=== PATIENT | female | born 1970 | race Caucasian/White ===

== ENCOUNTER → 2017-05-18 | Outpatient (REF) | payer OTHER ==
[2017-05-18 11:37] LABS: FREE T4 0.9 NG/DL (0.76-1.46)
== END ==
LOC: M LABDRAW1 09:49
PROVIDERS: ATTEND Nurse Practitioner Family
DX: E03.9 Hypothyroidism, unspecified (principal)

== ENCOUNTER → 2017-07-14 | Outpatient (CLI) | payer OTHER ==
[2017-07-14 12:32] LABS: FREE T4 1.06 NG/DL (0.76-1.46)
== END ==
LOC: M LAB 11:45
PROVIDERS: ATTEND Nurse Practitioner Family
DX: E03.9 Hypothyroidism, unspecified (principal)

== ENCOUNTER → 2018-07-01 | Outpatient (CLI) | payer MEDICAID ==
[2018-07-01 17:23] LABS: THYROID PEROXIDASE ANTIBODY 337.9 U/ML (<60.0)
[2018-07-01 17:24] LABS: FREE T4 1.11 NG/DL (0.76-1.46); THYROID STIMULATING HORMONE 0.065 uIU/ML (0.358-3.740)
== END ==
LOC: M LAB 16:19
DX: E06.3 Autoimmune thyroiditis (principal)
CPT/HCPCS: 84443

== ENCOUNTER → 2018-07-01 | Outpatient (CLI) | payer MEDICAID ==
[2018-07-01 16:50] LABS: BASO % 0.4 % (0.0-1.0); EOS # 0.1 10^3/uL (0.0-0.50); EOS % 1.5 % (0.0-3.0); HEMOGLOBIN 12.6 g/dl (12.0-15.5); IMMATURE GRANULOCYTE % 0.4 % (0-3.0); LYMPH # 1.8 10^3/uL (1.5-4.5); LYMPH % 34.1 % (24.0-44.0); MEAN CORPUSCULAR HEMOGLOBIN 31.3 pg (27.0-33.0); MEAN CORPUSCULAR HGB CONC 33.2 g/dl (32.0-36.5); MEAN CORPUSCULAR VOLUME 94.5 fl (80.0-96.0); MONO # 0.7 10^3/uL (0.0-0.8); MONO % 12.6 % (0.0-5.0); NEUTROPHILS # 2.7 10^3/uL (1.8-7.7); PLATELET COUNT, AUTOMATED 259 10^3/uL (150-450); RED BLOOD COUNT 4.02 10^6/uL (4.00-5.40); RED CELL DISTRIBUTION WIDTH 12.8 % (11.5-14.5); WHITE BLOOD COUNT 5.3 10^3/uL (4.0-10.0)
[2018-07-01 17:07] LABS: ESTIMATED AVERAGE GLUCOSE 105 MG/DL (60-110); HEMOGLOBIN A1c 5.3 %
[2018-07-01 17:17] LABS: ALKALINE PHOSPHATASE 49 U/L (45-117); ALT/SGPT 25 U/L (12-78); ANION GAP 6 MEQ/L (8-16); AST/SGOT 14 U/L (7-37); BLOOD UREA NITROGEN 11 MG/DL (7-18); CALCIUM LEVEL 8.6 MG/DL (8.5-10.1); CARBON DIOXIDE LEVEL 28 MEQ/L (21-32); CHLORIDE LEVEL 109 MEQ/L (98-107); CREATININE FOR GFR 0.79 MG/DL (0.55-1.30); GLOMERULAR FILTRATION RATE > 60.0 (>51); GLUCOSE, FASTING 86 MG/DL (70-100); POTASSIUM SERUM 3.9 MEQ/L (3.5-5.1); SODIUM LEVEL 143 MEQ/L (136-145)
[2018-07-01 17:18] LABS: ALBUMIN 3.5 GM/DL (3.2-5.2); ALBUMIN/GLOBULIN RATIO 1.09 (1.00-1.93); BILIRUBIN,TOTAL 0.4 MG/DL (0.2-1.0); CHOLESTEROL LEVEL 119 MG/DL (<200); HDL CHOLESTEROL 61 MG/DL (>40); LDL CHOLESTEROL 44.8 MG/DL (<100); NON-HDL-C 58 MG/DL; TOTAL PROTEIN 6.7 GM/DL (6.4-8.2); TRIGLYCERIDES LEVEL 66 MG/DL (<150)
[2018-07-01 17:23] LABS: TOTAL 25(OH) VITAMIN D 48.9 NG/ML (30.0-100.0)
== END ==
LOC: M LAB 16:09
DX: E55.9 Vitamin D deficiency, unspecified (principal); I10 Essential (primary) hypertension; R73.03 Prediabetes; E78.5 Hyperlipidemia, unspecified
CPT/HCPCS: 80053

== ENCOUNTER → 2018-11-03 | Outpatient (CLI) | payer OTHER ==
[2018-11-03 13:48] LABS: FREE T4 1.09 NG/DL (0.76-1.46); THYROID STIMULATING HORMONE 0.592 uIU/ML (0.358-3.740)
== END ==
LOC: M LAB 12:50
PROVIDERS: ATTEND Nurse Practitioner Family
DX: E06.3 Autoimmune thyroiditis (principal)

== ENCOUNTER → 2020-11-03 | Outpatient (CLI) | payer SELFPAY | LOC: M LABSMTC 10:36 | PROVIDERS: ATTEND Pediatrics | DX: Z20.828 Contact with and (suspected) exposure to other viral communicable diseases (principal) ==

== ENCOUNTER → 2021-05-08 | Outpatient (CLI) | payer BC ==
--- NOTE | 2021-05-08 13:20 | REP ---
INDICATION: PAIN IN LEFT FINGER(S) COMPARISON: None. TECHNIQUE: AP, lateral, bilateral oblique views left 5th digit. FINDINGS: There is a nondisplaced spiral fracture of the 5th metacarpal bone with overlying soft tissue swelling. Remainder of the examination is age-appropriate. IMPRESSION: Nondisplaced spiral fracture of the 5th metacarpal bone. <Electronically signed by Leon Lynn > 05/08/21 [id number]
== END ==
LOC: M RAD 12:44
PROVIDERS: ATTEND Physician Assistant
DX: S62.307A Unspecified fracture of fifth metacarpal bone, left hand, initial encounter for closed fracture (principal); Y92.9 Unspecified place or not applicable; Y93.9 Activity, unspecified; Y99.9 Unspecified external cause status; M79.645 Pain in left finger(s)

== ENCOUNTER 2021-08-06 13:11 | Emergency (ER) | payer OTHER, BC ==
[~2021-08-06] VITALS: Ht 149.9 cm; Wt 78.7 kg
[2021-08-06] MEDS ORDERED: AMLO1TAB24 (13:30)
[2021-08-06] MEDS ORDERED: LEVO75TA4 (13:30)
[2021-08-06] MEDS ORDERED: ATOR1TAB19 (13:30)
--- NOTE | 2021-08-06 13:47 | REP ---
INDICATION: pain and decreased ROM after a fall. COMPARISON: None. TECHNIQUE: Three views of the left shoulder were obtained. FINDINGS: There is no evidence of fracture or dislocation. The glenohumeral joint is normal. There is mild arthritis of the acromioclavicular joint. The periarticular soft tissues including the visualized left lung are unremarkable. IMPRESSION: 1. No evidence of fracture or dislocation. 2. Mild arthritis of the acromioclavicular joint. <Electronically signed by Cj Durand > 08/06/21 [id number]
[2021-08-06] MEDS ORDERED: XARE20TA PO (15:13)
[2021-08-06] MEDS ORDERED: NORCO, ANEXSIA 5/325MG TABLET (HYDROcodone/ACETAMINOPHEN) PO ONE (15:15)
--- NOTE | 2021-08-06 15:39 | REP ---
INDICATION: pain over 5th metacarpal to Ulna, recent fx, ORALIA. COMPARISON: None. TECHNIQUE: Four views of left hand were obtained. FINDINGS: There is no evidence of acute fracture or dislocation. There is a healed fracture of the 5th metacarpal. There is no significant arthropathy. There are no soft tissue abnormalities. IMPRESSION: No evidence of fracture or significant arthropathy. <Electronically signed by Cj Durand > 08/06/21 [id number]
[2021-08-06 16:22] VITALS: BP 128/73
== END 2021-08-06 16:23 | disposition home or self-care (01) ==
LOC: M ED 13:11
DX: R22.32 Localized swelling, mass and lump, left upper limb (principal); I10 Essential (primary) hypertension; E78.5 Hyperlipidemia, unspecified; E03.9 Hypothyroidism, unspecified; Z86.711 Personal history of pulmonary embolism; Z86.718 Personal history of other venous thrombosis and embolism; Z79.01 Long term (current) use of anticoagulants; Z79.899 Other long term (current) drug therapy; Z88.0 Allergy status to penicillin; Z87.891 Personal history of nicotine dependence

== ENCOUNTER 2022-04-04 11:06 | Emergency (ER) | payer MEDICAID ==
[~2022-04-04] VITALS: Ht 149.9 cm; Wt 74.5 kg
[~2022-04-04 11:06] MED LIST: AMLO1TAB24; ATOR1TAB19; LEVO75TA4; XARE20TA PO
[2022-04-04] MEDS ORDERED: VITAD400CA PO (11:21)
[2022-04-04] MEDS ORDERED: ONDANSETRON 4MG ORAL DISINTEGRATING TAB PO ONE (15:20)
[2022-04-04] MEDS ORDERED: MECLIZINE 25 MG TABLET PO ONE (15:20)
[2022-04-04 15:38] LABS: RSV AMPLIFICATION NEGATIVE (NEGATIVE)
[2022-04-04] MEDS ORDERED: MECL1TAB31 PO (16:43)
[2022-04-04] MEDS ORDERED: ONDA4TAB6 PO (16:43)
[2022-04-04 16:55] VITALS: BP 145/87
== END 2022-04-04 16:57 | disposition home or self-care (01) ==
LOC: M ED 11:06
DX: R42 Dizziness and giddiness (principal); I10 Essential (primary) hypertension; E78.5 Hyperlipidemia, unspecified; E06.3 Autoimmune thyroiditis; Z86.711 Personal history of pulmonary embolism; Z88.0 Allergy status to penicillin; Z88.8 Allergy status to other drugs, medicaments and biological substances; Z79.01 Long term (current) use of anticoagulants; Z79.899 Other long term (current) drug therapy; Z79.890 Hormone replacement therapy

== ENCOUNTER → 2022-05-01 | Outpatient (CLI) | payer OTHER ==
[~2022-05-01] MED LIST changes: +MECL1TAB31 PO; +ONDA4TAB6 PO; +VITAD400CA PO
== END ==
LOC: M ADAMS 11:31
PROVIDERS: ATTEND Family Medicine
DX: M47.817 Spondylosis without myelopathy or radiculopathy, lumbosacral region (principal); M54.50 Low back pain, unspecified

== ENCOUNTER → 2023-02-22 | Outpatient (REF) | payer OTHER ==
[2023-02-22 14:56] LABS: BASO % 0.2 % (0.0-1.0); EOS # 0.1 10^3/uL (0.0-0.5); EOS % 1.2 % (0.0-3.0); HEMATOCRIT 45.2 % (36.0-47.0); HEMOGLOBIN 14.3 g/dl (12.0-15.5); LYMPH # 1.3 10^3/uL (1.5-5.0); LYMPH % 30.7 % (24.0-44.0); MEAN CORPUSCULAR HEMOGLOBIN 30.9 pg (27.0-33.0); MEAN CORPUSCULAR HGB CONC 31.6 g/dl (32.0-36.5); MEAN CORPUSCULAR VOLUME 97.6 fl (80.0-96.0); MONO % 23.3 % (2.0-8.0); NEUTROPHILS # 1.9 10^3/uL (1.5-8.5); NEUTROPHILS % 44.1 % (36.0-66.0); PLATELET COUNT, AUTOMATED 262 10^3/uL (150-450); RED BLOOD COUNT 4.63 10^6/uL (4.00-5.40); WHITE BLOOD COUNT 4.3 10^3/uL (4.0-10.0)
[2023-02-22 14:58] LABS: ALBUMIN 4.1 G/DL (3.2-5.2); ALKALINE PHOSPHATASE 76 U/L (46-116); ALT/SGPT 22 U/L (7.0-40); AST/SGOT 18 U/L (<34); BILIRUBIN,TOTAL 0.6 MG/DL (0.3-1.2); BLOOD UREA NITROGEN 13 MG/DL (9-23); CALCIUM LEVEL 9.3 MG/DL (8.5-10.1); CARBON DIOXIDE LEVEL 29 MMOL/L (20-31); CHLORIDE LEVEL 106 MMOL/L (98-107); CHOLESTEROL LEVEL 151 MG/DL (<200); CHOLESTEROL RISK RATIO 2.35 (<5); CREATININE FOR GFR 1.01 MG/DL (0.55-1.30); GLOMERULAR FILTRATION RATE > 60.0 (>51); GLUCOSE, FASTING 99 MG/DL (60-100); POTASSIUM SERUM 4.4 MMOL/L (3.5-5.1); SODIUM LEVEL 142 MMOL/L (136-145); TOTAL PROTEIN 6.8 G/DL (5.7-8.2); TRIGLYCERIDES LEVEL 70 MG/DL (<150)
[2023-02-22 14:59] LABS: THYROID STIMULATING HORMONE 0.223 uIU/ML (0.55-4.78)
[2023-02-22 15:00] LABS: FREE T4 1.09 NG/DL (0.89-1.76); TOTAL 25(OH) VITAMIN D 69.6 NG/ML (20.0-100.0)
[2023-02-22 15:11] LABS: HEMOGLOBIN A1c 5.6 % (4.0-6.0)
== END ==
LOC: M SFHCADAM 08:10
PROVIDERS: ATTEND Physician Assistant
DX: I11.9 Hypertensive heart disease without heart failure (principal); E78.5 Hyperlipidemia, unspecified; E06.3 Autoimmune thyroiditis; Z13.820 Encounter for screening for osteoporosis; Z68.33 Body mass index [BMI] 33.0-33.9, adult

== ENCOUNTER → 2023-02-22 | Outpatient (CLI) | payer OTHER | LOC: M ADAMS 08:15 | PROVIDERS: ATTEND Physician Assistant | DX: M25.572 Pain in left ankle and joints of left foot (principal) ==

== ENCOUNTER → 2023-08-13 | Outpatient (CLI) | payer OTHER ==
[~2023-08-13] MED LIST changes: +MECL-209 PO; -MECL1TAB31 PO
== END ==
LOC: M ADAMS 11:52
PROVIDERS: ATTEND Physician Assistant Medical
DX: M51.36 Other intervertebral disc degeneration, lumbar region (principal); R20.2 Paresthesia of skin

== ENCOUNTER → 2023-11-15 | Outpatient (CLI) | payer OTHER | LOC: M ADAMS 11:37 | PROVIDERS: ATTEND Physician Assistant | DX: M25.561 Pain in right knee (principal) ==

== ENCOUNTER → 2024-01-07 | Outpatient (CLI) | payer OTHER | LOC: M PLAIMG 06:32 | PROVIDERS: ATTEND Psychiatry & Neurology Neurology | DX: R53.1 Weakness (principal); M48.02 Spinal stenosis, cervical region; M50.222 Other cervical disc displacement at C5-C6 level; M50.223 Other cervical disc displacement at C6-C7 level ==

== ENCOUNTER → 2024-07-22 | Outpatient (CLI) | payer OTHER ==
[~2024-07-22] MED LIST changes: +ONDA-282 PO; -ONDA4TAB6 PO
[2024-07-22 16:43] LABS: BASO % 0.4 % (0.0-1.0); EOS # 0.1 10^3/uL (0.0-0.5); EOS % 1.4 % (0.0-3.0); HEMATOCRIT 38.4 % (36.0-47.0); HEMOGLOBIN 12.8 g/dl (12.0-15.5); LYMPH # 1.8 10^3/uL (1.5-5.0); LYMPH % 37.2 % (24.0-44.0); MEAN CORPUSCULAR HEMOGLOBIN 31.9 pg (27.0-33.0); MEAN CORPUSCULAR HGB CONC 33.3 g/dl (32.0-36.5); MEAN CORPUSCULAR VOLUME 95.8 fl (80.0-96.0); MONO # 0.7 10^3/uL (0.0-0.8); MONO % 13.4 % (2.0-8.0); NEUTROPHILS # 2.3 10^3/uL (1.5-8.5); NEUTROPHILS % 47.2 % (36.0-66.0); PLATELET COUNT, AUTOMATED 275 10^3/uL (150-450); RED BLOOD COUNT 4.01 10^6/uL (4.00-5.40); WHITE BLOOD COUNT 4.9 10^3/uL (4.0-10.0)
[2024-07-22 16:53] LABS: ERYTHROCYTE SEDIMENTATION RATE 10 mm/hr (0-30)
[2024-07-22 17:09] LABS: C REACTIVE PROTEIN QUANTITATIV < 0.40 MG/DL (<1.0)
== END ==
LOC: M LAB 16:11
PROVIDERS: ATTEND Physician Assistant
DX: M47.892 Other spondylosis, cervical region (principal)

== ENCOUNTER 2024-09-01 11:02 | Emergency (ER) | payer OTHER ==
[~2024-09-01] VITALS: Ht 149.9 cm; Wt 97.1 kg
[2024-09-01 11:05] VITALS: TEMP 97.1; O2SAT 98
[2024-09-01 14:07] VITALS: BP 141/82
== END 2024-09-01 14:12 | disposition home or self-care (01) ==
LOC: M ED 11:02
DX: S69.92XA Unspecified injury of left wrist, hand and finger(s), initial encounter (principal); W07.XXXA Fall from chair, initial encounter; Y92.9 Unspecified place or not applicable; Y93.9 Activity, unspecified; Y99.0 Civilian activity done for income or pay; I10 Essential (primary) hypertension; E06.3 Autoimmune thyroiditis; Z86.711 Personal history of pulmonary embolism; Z86.718 Personal history of other venous thrombosis and embolism; Z79.899 Other long term (current) drug therapy; Z88.0 Allergy status to penicillin; Z88.1 Allergy status to other antibiotic agents

== ENCOUNTER → 2024-09-29 | Outpatient (CLI) | payer OTHER | LOC: M ADAMS 10:08 | PROVIDERS: ATTEND Physician Assistant | DX: R05.1 Acute cough (principal); J06.9 Acute upper respiratory infection, unspecified ==

== ENCOUNTER → 2024-12-12 | Outpatient (REF) | payer BC, OTHER ==
[2024-12-12 13:24] LABS: INR 1.63; PARTIAL THROMBOPLASTIN TIME 38.3 SECONDS (24.8-34.2); PROTHROMBIN TIME 19.5 SECONDS (12.5-14.5)
[2024-12-12 14:45] LABS: BASO % 0.8 % (0.0-1.0); HEMATOCRIT 40.4 % (36.0-47.0); HEMOGLOBIN 12.6 g/dl (12.0-15.5); LYMPH # 1.4 10^3/uL (1.5-5.0); LYMPH % 35.9 % (24.0-44.0); MEAN CORPUSCULAR HEMOGLOBIN 29.9 pg (27.0-33.0); MEAN CORPUSCULAR HGB CONC 31.2 g/dl (32.0-36.5); MEAN CORPUSCULAR VOLUME 95.7 fl (80.0-96.0); MONO # 0.5 10^3/uL (0.0-0.8); MONO % 13.6 % (2.0-8.0); NEUTROPHILS # 1.9 10^3/uL (1.5-8.5); NEUTROPHILS % 48.2 % (36.0-66.0); PLATELET COUNT, AUTOMATED 342 10^3/uL (150-450); RED BLOOD COUNT 4.22 10^6/uL (4.00-5.40)
[2024-12-12 14:55] LABS: LIPASE 27 U/L (12-53)
[2024-12-12 14:57] LABS: ALKALINE PHOSPHATASE 72 U/L (35-104); ALT/SGPT 20 U/L (7.0-40); AMYLASE 87 U/L (30-118); AST/SGOT 18 U/L (<34); BILIRUBIN,TOTAL 0.6 MG/DL (0.3-1.2); BLOOD UREA NITROGEN 14 MG/DL (9-23); CALCIUM LEVEL 9.1 MG/DL (8.5-10.1); CARBON DIOXIDE LEVEL 28 MMOL/L (20-31); CHLORIDE LEVEL 108 MMOL/L (98-107); CHOLESTEROL LEVEL 162 MG/DL (<200); CHOLESTEROL RISK RATIO 2.42 (<5); CREATININE FOR GFR 0.86 MG/DL (0.55-1.30); GLOMERULAR FILTRATION RATE > 60.0 (>51); GLUCOSE, FASTING 83 MG/DL (60-100); HDL CHOLESTEROL 66.8 MG/DL (>40); LDL CHOLESTEROL 81.4 MG/DL (<100); NON-HDL-C 95.2 MG/DL; POTASSIUM SERUM 4.6 MMOL/L (3.5-5.1); SODIUM LEVEL 145 MMOL/L (136-145); TOTAL PROTEIN 7.1 G/DL (5.7-8.2); TRIGLYCERIDES LEVEL 69 MG/DL (<150)
[2024-12-12 14:59] LABS: FREE T4 1.19 NG/DL (0.89-1.76); THYROID STIMULATING HORMONE 2.569 uIU/ML (0.55-4.78)
[2024-12-12 15:12] LABS: HEMOGLOBIN A1c 5.6 % (4.0-6.0)
[2024-12-15 16:13] LABS: PROTEIN S ANTIGEN FREE 110 % normal (50-147); PROTEIN S ANTIGEN TOTAL 97 % normal (70-140)
[2024-12-15 22:07] LABS: ANTI THROMBIN 3 ANTIGEN IMMUNO 101 % normal (80-120)
[2024-12-16 12:57] LABS: PROTEIN C ANTIGEN 116 % normal (70-140)
[2024-12-17 09:18] LABS: FACTOR V 100 % normal (65-150); Hexagonal Phase Phospholipid Negative (Negative); PTT-LA 41 sec (<=40); dRVVT 71 sec (<=45); dRVVT Confirm Negative (Negative)
== END ==
LOC: M SFHCADAM 10:42
PROVIDERS: ATTEND Physician Assistant
DX: L29.9 Pruritus, unspecified (principal); R10.10 Upper abdominal pain, unspecified; Z86.711 Personal history of pulmonary embolism; Z86.718 Personal history of other venous thrombosis and embolism; I11.9 Hypertensive heart disease without heart failure; E78.5 Hyperlipidemia, unspecified; E06.3 Autoimmune thyroiditis; Z68.33 Body mass index [BMI] 33.0-33.9, adult; M17.11 Unilateral primary osteoarthritis, right knee

== ENCOUNTER → 2024-12-30 | Outpatient (CLI) | payer BC, OTHER ==
[~2024-12-30] MED LIST changes: +ISOVUE-370 76% 100ML VIAL As Ordered ONE
== END ==
LOC: M RAD 12:49
PROVIDERS: ATTEND Physician Assistant
DX: L29.9 Pruritus, unspecified (principal); R10.10 Upper abdominal pain, unspecified; Z86.711 Personal history of pulmonary embolism; Z86.718 Personal history of other venous thrombosis and embolism; K44.9 Diaphragmatic hernia without obstruction or gangrene; K45.8 Other specified abdominal hernia without obstruction or gangrene; E27.8 Other specified disorders of adrenal gland
CPT/HCPCS: 74160; 93970; Q9967

== ENCOUNTER → 2025-05-07 | Outpatient (CLI) | payer OTHER ==
[~2025-05-07] MED LIST changes: -ISOVUE-370 76% 100ML VIAL As Ordered ONE
== END ==
LOC: M PLAIMG 09:45
PROVIDERS: ATTEND Physician Assistant
DX: M23.92 Unspecified internal derangement of left knee (principal); M17.12 Unilateral primary osteoarthritis, left knee; M25.462 Effusion, left knee